=== PATIENT | male | born 1940 | race Caucasian/White ===

== ENCOUNTER 2021-01-02 05:57 | Day surgery (SDC) | payer MEDICARE, BC ==
[~2021-01-02 05:57] MED LIST: Lactated Ringers 1,000 ML IV SCH; Lidocaine 1%/Sod Bicarbonate in NS 8.4% 1 ML Syringe IDERM PRN; Sodium Chloride 0.9% 10 ML Syringe FLUSH PRN
[2021-01-02] MEDS ORDERED: Midazolam 1 MG/ML 2 ML SDV ONE (06:12)
[2021-01-02] MEDS ORDERED: Propofol 200 MG/20 ML SDV ONE ×3 (06:12→09:12)
[2021-01-02] MEDS ORDERED: Lidocaine 1% 4 ML ONE (06:12)
[2021-01-02] MEDS ORDERED: fentaNYL 100 MCG/2 ML SDV ONE (06:12)
[2021-01-02] MEDS ORDERED: ceFAZolin 1 GM Vial ONE (06:17)
[2021-01-02] MEDS ORDERED: EPINEPHrine 1 MG/ML SDV ONE (06:31)
[2021-01-02] MEDS ORDERED: Ropivacaine 0.5% 5 MG/ML 30 ML SDV ONE (06:31)
--- NOTE | 2021-01-02 06:38 | PCM.PREANE ---
Preanesthetic Assessment - Procedure Proposed Procedure: revision right total knee arthroplasty - Anesthesia/Transfusion/Family Hx Anesthesia History: Prior Anesthesia Without Reaction Family History of Anesthesia Reaction: No Transfusion History: No Prior Transfusion(s) - Review of Systems General: No Symptoms Pulmonary: No Symptoms Cardiovascular: No Symptoms Gastrointestinal: No Symptoms Neurological: No Symptoms Other: Reports: Diabetes, Thyroid Problems (growths on it), Neck Pain (arthritis) - Physical Assessment NPO Status Date: 01/01/21 NPO Status Time: 17:00 Vital Signs: 156/78 75 96% 97.9 18 Height: 5 ft 10 in Weight: 98 kg ASA Class: 3 Mental Status: Alert & Oriented x3 Airway Class: Mallampati = 1 Dentition: Reports: Partial (not in top and bottom) Thyro-Mental Finger Breadths: 3 Mouth Opening Finger Breadths: 3 ROM/Head Extension: Full Lungs: Clear to Auscultation, Normal Respiratory Effort Cardiovascular: Regular Rate, Regular Rhythm - Allergies Allergies/Adverse Reactions: Allergies Allergy/AdvReac Type Severity Reaction Status Date / Time No Known Allergies Allergy Verified 01/02/21 06:51 - Blood Blood Available: No - Anesthesia Plan Beta Amanda: Metoprolol Med Last Dose Date: 01/02/21 Med Last Dose Time: 05:00 - Acknowledgements Anesthesia Type Planned: Spinal, Regional Block (adductor canal at end) Pt an Appropriate Candidate for the Planned Anesthesia: Yes Alternatives and Risks of Anesthesia Discussed w Pt/Guardian: Yes Pt/Guardian Understands and Agrees with Anesthesia Plan: Yes PreAnesthesia Questionnaire HEENT History: Reports: Impaired Vision, Other (See Below) Other HEENT History: WEARS GLASSES, HAS HEARING AIDS Cardiovascular History: Reports: Afib, CAD, Hypertension, Other (See Below) Other Cardiovascular History: HEART VALVE ABNORMALITY Respiratory History: Reports: Sleep Apnea (cpap) Gastrointestinal History: Reports: GERD Genitourinary History: Reports: BPH, Prostate Disorder, Other (See Below) Other Genitourinary History: CKII, PROTEINURIA, BLADDER NEOPLASM FORMS EXAMINER History: Reports: None Musculoskeletal History: Reports: Osteoarthritis, Other (See Below) Other Musculoskeletal History: CALF PAIN, POPLITEAL CYST Neurological History: Reports: None Psychiatric History: Reports: None Endocrine/Metabolic History: Reports: Diabetes, Type II, Osteopenia, Other (See Below) Other Endocrine/Metabolic History: Nodules to thyroid Hematologic History: Reports: None Immunologic History: Reports: None Oncologic (Cancer) History: Reports: Bladder Dermatologic History: Reports: Other (See Below) Other Dermatologic History: BULLOUS PEMPHIGOID, SKIN LESION - Infectious Disease History Infectious Disease History: Reports: None - Past Surgical History HEENT Surgical History: Reports: Cataract Surgery Cardiovascular Surgical History: Reports: Coronary Artery Bypass Other Cardiovascular Surgeries/Procedures: 6 vessel bypass Respiratory Surgical History: Reports: None GI Surgical History: Reports: None Female Surgical History: Reports: None Male Surgical History: Reports: None Other Male Surgeries/Procedures: Bladder cancer Endocrine Surgical History: Reports: None Neurological Surgical History: Reports: None Musculoskeletal Surgical History: Reports: Knee Replacement Other Musculoskeletal Surgeries/Procedures:: RTK Oncologic Surgical History: Reports: None Dermatological Surgical History: Reports: None - SUBSTANCE USE Tobacco Use Status *Q: Former Tobacco User Tobacco Use Within Last Twelve Months: No Second Hand Smoke Exposure: No Days Per Week of Alcohol Use: 0 Recreational Drug Use History: No - HOME MEDS Home Medications: Home Meds Apixaban [Eliquis] 5 mg PO BID 10/08/14 [History] Cholecalciferol (Vitamin D3) [Vitamin D3] 2,000 unit PO BEDTIME 10/08/14 [History] Fluticasone Propionate [Flovent] 2 sprays NASBOTH BID 10/08/14 [History] Metoprolol Tartrate 25 mg PO BID 10/08/14 [History] Mometasone Furoate 100mcg [Asmanex HFA 100mcg] 1 puff INH Q48H 10/08/14 [History] Pravastatin [Pravachol] 20 mg PO BEDTIME 10/08/14 [History] Ubidecarenone [Co Q-10] 100 mg PO DAILY 10/08/14 [History] Valsartan 320 mg PO DAILY 10/08/14 [History] Zinc 50 mg PO BEDTIME 10/08/14 [History] Albuterol [Proventil HFA] 1 - 2 puff INH Q4H PRN 12/30/20 [History] Empagliflozin [Jardiance] 25 mg PO DAILY 12/30/20 [History] Finasteride [Proscar] 5 mg PO DAILY 12/30/20 [History] Furosemide [Lasix] 20 mg PO DAILY 12/30/20 [History] Hydrocodone/Acetaminophen [HYDROcodone-Acetaminophen 5-325 MG] 1 - 2 each PO Q4H PRN #40 tablet 12/30/20 [Rx] Nitroglycerin [Nitrostat] 0.4 mg SL ASDIRECTED PRN 12/30/20 [History] Tamsulosin [Flomax] 0.4 mg PO DAILY 12/30/20 [History] Tiotropium BR/Olodaterol HCL [Stiolto Respimat] 2 puff INH Q48H 12/30/20 [ History] dilTIAZem HCL [Cardizem Cd] 240 mg PO DAILY 12/30/20 [History] - CURRENT (IN HOUSE) MEDS Current Meds: Current Medications Morphine Sulfate 8 mg/Epinephrine HCl 0.3 mg/Cefuroxime Sodium 750 mg/Ketorolac Tromethamine 30 mg/Sodium Chloride 7.9 ml 0 mg .XX ASDIRECTED PRN PRN Reason: Pain Stop: 01/02/21 16:00 Lactated Ringer's (Ringers, Lactated) 1,000 mls @ 125 mls/hr IV ASDIRECTED DELL Stop: 01/02/21 23:00 Lidocaine/Sodium Bicarbonate (Lidocaine 1%/Sod Bicarbonate In Ns 8.4% 1 Ml Syringe) 0.25 ml IDERM ONETIME PRN PRN Reason: Prior to IV Start Stop: 01/02/21 18:00 Sodium Chloride (Sodium Chloride 0.9% 10 Ml Syringe) 10 ml FLUSH ASDIRECTED PRN PRN Reason: Keep Vein Open Stop: 01/02/21 18:00 Discontinued Medications Cefazolin Sodium (Cefazolin 1 Gm Vial) Confirm Administered Dose 2 gm .ROUTE .STK-MED ONE Stop: 01/02/21 06:18 Fentanyl (Fentanyl 100 Mcg/2 Ml Sdv) Confirm Administered Dose 100 mcg .ROUTE .STK-MED ONE Stop: 01/02/21 06:13 Lidocaine HCl (Xylocaine-Mpf 1%) Confirm Administered Dose 4 mls @ as directed .ROUTE .STK-MED ONE Stop: 01/02/21 06:13 Midazolam HCl (Midazolam 1 Mg/Ml 2 Ml Sdv) Confirm Administered Dose 2 mg .ROUTE .STK-MED ONE Stop: 01/02/21 06:13 Propofol (Propofol 200 Mg/20 Ml Sdv) Confirm Administered Dose 400 mg .ROUTE .STK-MED ONE Stop: 01/02/21 06:13 Tranexamic Acid (Tranexamic Acid 1,000 Mg/10 Ml Amp) Confirm Administered Dose 1,000 mg .ROUTE .STK-MED ONE Stop: 01/02/21 06:07 Vancomycin HCl (Vancomycin 1 Gm Sdv) Confirm Administered Dose 1 gm .ROUTE .STK-MED ONE Stop: 01/02/21 06:07
[2021-01-02] MEDS ORDERED: ePHEDrine 50 MG/ML SDV ONE ×2 (07:19→08:45)
[2021-01-02] MEDS ORDERED: Lactated Ringers 1,000 ML ONE ×2 (07:23→09:34)
[2021-01-02] MEDS ORDERED: HYDROmorphone 0.5 MG/0.5 ML Syringe IVPUSH PRN (07:31)
[2021-01-02] MEDS ORDERED: Ondansetron 4 MG/2 ML SDV IVPUSH PRN (07:31)
[2021-01-02] MEDS: Morphine 8 MG, EPINEPHrine 0.3 MG, Cefuroxime 750 MG, Ketorolac 30 MG, Sodium Chloride ... PRN ×10 (07:55→09:30)
[2021-01-02] MEDS: Vancomycin 1 GM SDV ONE ×2 (08:00→09:40)
[2021-01-02] MEDS ORDERED: Ondansetron 4 MG/2 ML SDV ONE (09:50)
--- NOTE | 2021-01-02 10:08 | PCM.POSTAN ---
POST ANESTHESIA ASSESSMENT - MENTAL STATUS Mental Status: Alert, Oriented - VITAL SIGNS Vital Signs: Last Vital Signs Temp 97.9 F 01/02/21 06:10 Pulse 75 01/02/21 06:10 Resp 18 01/02/21 06:10 BP 156/78 H 01/02/21 06:10 Pulse Ox 96 01/02/21 06:10 1002 122/58 66 10 97.8 94% - RESPIRATORY Respiratory Status: Respiratory Rate WNL, Airway Patent, O2 Saturation Stable, Supplemental Oxygen - CARDIOVASCULAR CV Status: Pulse Rate WNL, Blood Pressure Stable - GASTROINTESTINAL GI Status: No Symptoms - PAIN Pain Score: 0 - POST OP HYDRATION Hydration Status: Adequate & Stable
[2021-01-02] MEDS: fentaNYL 100 MCG/2 ML SDV IVPUSH PRN ×2 (10:26→10:45)
--- NOTE | 2021-01-02 10:33 | PCM.SN.2 ---
- Free Text/Narrative Note: Right selective femoral nerve block at the adductor canal for post-procedure pain control under US guidance requested by Dr. Dodd. Date: 01/02/21 Time Out:1016 Start: 1019 End: 1021 Chart reviewed. Consent signed. Questions answered. Appropriate monitors applied. Time out performed. Right mid-shaft femur identified with ultrasound, scanning medially of femur, the femoral artery in the adductor canal visualized, and the femoral nerve located laterally to the artery. The skin was prepped lateral to the ultrasound probe with chlorahexadine times two. The 20 ga 4 insulated block needle was inserted under direct ultrasound guidance into the adductor canal. 25mL of 0.5% ropivacaine with 1:200,000 epinephrine was injected circumferentially around the nerve with intermittent negative aspiration noted. Patient tolerated the procedure well. Sterile technique noted along with sterile gloves, mask, and sterile probe cover. See picture on progress note and vital signs on nurses notes. Block completed in PACU. Allan Calhoun CRNA
--- NOTE | 2021-01-02 11:51 | CR ---
Right knee: AP and lateral views of the right knee were obtained. Comparison: Prior CT right knee study of 12/23/20. Knee prosthesis is noted. Components are aligned. Patellar prosthesis is also seen. Soft tissue air is noted. No underlying bony abnormality is appreciated. Impression: 1. Satisfactory postoperative radiographic appearance of right knee prostheses. Diagnostic code #2
--- NOTE | 2021-01-02 12:43 | PCM48HPAN ---
Post Anesthesia Note - EVALUATION WITHIN 48HRS OF ANESTHETIC Vital Signs in Normal Range: Yes Patient Participated in Evaluation: Yes Respiratory Function Stable: Yes Airway Patent: Yes Cardiovascular Function Stable: Yes Hydration Status Stable: Yes Pain Control Satisfactory: Yes Nausea and Vomiting Control Satisfactory: Yes Mental Status Recovered: Yes Vital Signs: Last Vital Signs Temp 97.9 F 01/02/21 11:00 Pulse 58 L 01/02/21 11:30 Resp 17 01/02/21 11:30 BP 121/68 01/02/21 11:30 Pulse Ox 91 L 01/02/21 11:30 - COMMENTS/OBSERVATIONS Free Text/Narrative:: just back to bed after wallking in [place] with PT. pain better- ate without trouble. with
[2021-01-02 15:24] VITALS: BP 124/60; PULSE 71
--- NOTE | 2021-01-15 18:06 | PCM.OPNOTE ---
- General Post-Op/Procedure Note Date of Surgery/Procedure: 01/02/21 Operative Procedure(s): revision right total knee arthroplasty Pre Op Diagnosis: right total knee arthroplasty loosening Post-Op Diagnosis: Same Anesthesia Technique: Local, MAC, Spinal Primary Surgeon: Loco Dodd Anesthesia Provider: Allan Calhoun Forging Machine Hand: Sharon Hartmann Forging Machine Hand: Brina Collier in mLs: 5 Complications: None Condition: Good Free Text/Narrative:: 06/29 11mm 5mm tibial augments 5 distal medial 10mm distal lateral 5mm posterior lateral B cone 25 mm cone popcorn candy maker with 50mm stem
--- NOTE | 2021-01-17 07:49 | OR ---
DATE OF OPERATION: 01/02/2021 SURGEON: Loco Dodd MD OPERATION PERFORMED: Revision of right total knee arthroplasty. PREOPERATIVE DIAGNOSIS: Right total knee arthroplasty loosening. POSTOPERATIVE DIAGNOSIS: Right total knee arthroplasty loosening. ANESTHESIA: Local MAC with spinal. ANESTHESIA PROVIDER: Allan Calhoun CRNA. ASSISTANTS: Sharon Hartmann PA-C and Brina Collier LPN. ESTIMATED BLOOD LOSS: 5 mL. COMPLICATIONS: None. CONDITION: Stable. IMPLANT: 1. Misty size 5 cemented PS femur. 2. Misty size 5 cemented [place] tibial baseplate. 3. [place] size 11 mm PS X3 polyethylene. 4. [place] size 5 mm medial and lateral tibial augments. 5. Misty size 5 mm distal medial femoral augment. 6. [place] size 10 mm distal lateral augment. 7. [place] size 5 mm posterolateral augment. 8. [place] size B tibial cone. 9. Misty size 25 mm cone director of graduate admissions with 50 mm stem. DESCRIPTION OF PROCEDURE: The patient was identified in the preoperative holding area. Proper site was marked and identified by the surgeon. The patient was taken back to the operating theater, where after adequate anesthesia, the patient's right lower extremity had a nonsterile tourniquet applied and then it was sterilely prepped and draped in the usual sterile fashion. OR time-out was performed. The patient received 2 g IV Ancef. At this time, previous incision was utilized and a medial parapatellar arthrotomy was created. Deep fibers of the MCL were raised as well as any scarred adhesions near the patellar tendon. The patella button was intact with no signs of loosening. At this time, two 4.0 Schanz pins were placed extra-incisionally on the femur and 2 more were placed extra- incisionally on the tibia for the [place] robotic arrays. Checkpoints were then placed on the femur and the tibia. 40 points were then obtained off the previous implants as well as the bone around the previous implants for the [place] Pa robotic plan. Once there was an adequate plan, a flexible osteotome as well as reciprocating saw were used to dislodge the femoral component, which was found to be very easy with no bone loss whatsoever. The tibial component was completely loose and just came out without even any flexible osteotome or cutting. At this time, scar tissue was removed from around the femur and the tibia. The tibial cut was then completed taking 3 mm off the previous tibia. Excess cement from inside the canal was then removed. I did ream for a size B cone. The size 5 trial was found to be adequate. At this time, we reamed distally for a 25 mm cone director of graduate admissions and a 9 x 50 mm stem. Once this was completed, we then did the [employer] robotic plan for the femur. I took 5 mm for 5 mm augment off the distal medial side and 10 mm for the distal lateral side as well as 5 mm for the posterior lateral side. The rest of it was adequate and not much resection was done, just enough for the size 5. A box cut was then completed for the size 5 implant. Trial implants were then placed at first without augments on the tibia, but then we did 5 mm augments on both medial and lateral side of the tibia after resecting the tibia 5 mm more. At this time, 5 mm medial and lateral augments were placed on the tibia as well as 10 mm on the distal lateral femur and 5 mm on the distal medial femur and 5 mm on the posterolateral femur. The patient had adequate sikhism of tension on varus and valgus stresses with no instability. He had full range of motion. Patella was tracking centrally. At this time, cement was mixed on the back table. Pulse lavage irrigation was used to irrigate both femur and tibia and then was completely dried. The tibial and femoral constructs were constructed on the back table. At this time, once the cement was ready, the bone plug was then placed in the tibial canal and the size 5 tibial base plate with the 75 mm construct was then placed after the size B cone was placed. This was then cemented into place. The size 5 PS femur was then cemented into place and the 11 mm PS X3 polyethylene was impacted into place. The patient's knee was brought to full extension. Excess cement was removed. 1 L pulse lavage irrigation with Ancef was irrigated through the knee along with 400 mL Irrisept irrigation. Topical tranexamic acid and vancomycin powder were applied. Periarticular injection was completed. #2 barbed suture was used for closure of the medial parapatellar arthrotomy. 2-0 Vicryl and Stratafix were used subcutaneously and Prineo was used for skin closure. All of the previous robotic arrays and Schanz pins were removed. A 3-0 nylon was used for closure of the poke hole incisions for the Schanz pins. The patient had sterile soft dressing applied and sent to the PACU in stable condition. GAMA /[id number]
== END 2021-01-02 13:44 | disposition home or self-care (01) ==
LOC: JD.SDS 05:57
PROVIDERS: ATTEND Orthopaedic Surgery
DX: T84.032A Mechanical loosening of internal right knee prosthetic joint, initial encounter (principal); J44.9 Chronic obstructive pulmonary disease, unspecified; I50.9 Heart failure, unspecified; E78.5 Hyperlipidemia, unspecified; E66.3 Overweight; I48.91 Unspecified atrial fibrillation; I25.10 Atherosclerotic heart disease of native coronary artery without angina pectoris; G47.30 Sleep apnea, unspecified; E11.22 Type 2 diabetes mellitus with diabetic chronic kidney disease; I13.0 Hypertensive heart and chronic kidney disease with heart failure and stage 1 through stage 4 chronic kidney disease, or unspecified chronic kidney disease; N18.1 Chronic kidney disease, stage 1; Z79.899 Other long term (current) drug therapy; Z79.01 Long term (current) use of anticoagulants; Z87.891 Personal history of nicotine dependence; Z98.890 Other specified postprocedural states; Z68.32 Body mass index [BMI] 32.0-32.9, adult
CPT/HCPCS: 27487; 73560; 82947; 97110; 97116; 97161; C1713; C1776; J0171; J0690; J0697; J1885; J2250; J2270; J2405; J2704; J2795; J3010; J3370; J7120; 01402

== ENCOUNTER 2022-11-30 17:15 | Inpatient (IN) | payer MEDICARE, BC ==
[2022-11-30] MEDS ORDERED: Sodium Chloride 0.9% 1,000 ML IV ONE (17:27)
[2022-11-30] MEDS ORDERED: oxyCODONE 5 MG Tab PO PRN (17:32)
[2022-11-30] MEDS ORDERED: Ondansetron 4 MG/2 ML SDV IV PRN (17:32)
[2022-11-30] MEDS ORDERED: Acetaminophen 325 MG Tab PO PRN (17:32)
[2022-11-30] MEDS ORDERED: Sodium Chloride 0.9% 500 ML IV ONE (17:56)
[2022-11-30 18:14] LABS: HEMATOCRIT 40.2 % (42.0-52.0); HEMOGLOBIN 13.3 gm/dl (14.0-18.0); MEAN CORPUSCULAR HEMOGLOBIN 32.7 pg (28.0-32.0); MEAN CORPUSCULAR HGB CONC 33.1 g/dl (32.0-36.0); MEAN CORPUSCULAR VOLUME 98.8 fl (83.0-99.0); MEAN PLATELET VOLUME 9.1 fl (9.4-12.4); PLATELET COUNT,PLT 285 K/mm3 (150-400); RED BLOOD CELL COUNT 4.07 M/mm3 (4.52-5.90); WHITE BLOOD CELL COUNT,WBC 10.52 K/mm3 (3.9-11.3)
[2022-11-30 18:52] LABS: APPEARANCE,URINE CLEAR (Clear); BILIRUBIN,URINE NEGATIVE (Negative); COLOR,URINE YELLOW (Yellow); GLUCOSE,URINE 2+ (Negative); KETONES,URINE NEGATIVE (Negative); LEUKOCYTE ESTERASE,URINE NEGATIVE (Negative); NITRITE,URINE NEGATIVE (Negative); OCCULT BLOOD,URINE TRACE-INTACT (Negative); PROTEIN,URINE 1+ (Negative); UROBILINOGEN,URINE 0.2 (0.2-1.0)
[2022-11-30 18:58] LABS: RBC,URINE 0-5 /hpf (0-5); WBC,URINE 0-5 /hpf (0-5)
[2022-11-30 18:59] LABS: A/G RATIO 0.7 (1-2); ALBUMIN 3.1 g/dl (3.4-5.0); ANION GAP 15.3 (5-15); BILIRUBIN DIRECT 0.3 mg/dl (0.0-0.2); BILIRUBIN INDIRECT 0.7; CREATININE 2.6 mg/dL (0.7-1.3); EST CRCL DRUG DOSING (CG) 21.84 mL/min; POTASSIUM,K 4.3 mEq/L (3.5-5.1); PROTEIN TOTAL,TP 7.7 g/dl (6.4-8.2); TSH 0.766 uIU/mL (0.358-3.74); VITAMIN D,25-HYDROXY 77.4 ng/ml (30.0-100.0)
[2022-11-30 18:59] LABS: BACTERIA,URINE FEW /hpf (FEW); MUCUS,URINE FEW /hpf (FEW); SQUAMOUS EPITHELIAL CELLS,UR 0-5 /hpf (0-5)
[2022-11-30] MEDS ORDERED: Calcitonin (Salmon) 200 Units/ML 2 ML MDV SUBCUT ONE (19:00)
[2022-11-30 19:03] LABS: CALCIUM 13.1 mg/dL (8.5-10.1)
[2022-11-30] MEDS: Tamsulosin 0.4 MG Cap.ER PO SCH (19:05)
[2022-11-30] MEDS: Apixaban 2.5 MG Tab PO SCH (20:51)
[2022-11-30] MEDS ORDERED: Metoprolol Tartrate 25 MG Tab PO SCH (21:00)
[2022-11-30] MEDS: Sodium Chloride 0.9% 1,000 ML IV SCH (21:53)
[2022-11-30 22:37] LABS: ANION GAP 12.7 (5-15); BUN/CREATININE RATIO 20.4 (14-18); CALCIUM 12.4 mg/dL (8.5-10.1); CREATININE 2.4 mg/dL (0.7-1.3); EST CRCL DRUG DOSING (CG) 23.66 mL/min
[2022-11-30 22:50] LABS: POTASSIUM,K 4.7 mEq/L (3.5-5.1)
[2022-12-01] MEDS: Sodium Chloride 0.9% 1,000 ML IV SCH ×3 (01:02→14:42)
[2022-12-01] MEDS: Diltiazem 120 MG Cap.CD PO SCH (08:00)
[2022-12-01] MEDS: Finasteride 5 MG Tab PO SCH (08:01)
[2022-12-01] MEDS: Apixaban 2.5 MG Tab PO SCH ×2 (08:01→20:08)
[2022-12-01] MEDS: Tamsulosin 0.4 MG Cap.ER PO SCH (08:01)
[2022-12-01] MEDS ORDERED: Docusate Sodium 100 MG Cap PO PRN (08:21)
[2022-12-01] MEDS ORDERED: Calcitonin (Salmon) 200 Units/ML 2 ML MDV SUBCUT ONE ×3 (09:00→21:00)
[2022-12-01 12:34] LABS: ANION GAP 15.3 (5-15); BUN/CREATININE RATIO 18.6 (14-18); CALCIUM 12.1 mg/dL (8.5-10.1); CREATININE 2.2 mg/dL (0.7-1.3); EST CRCL DRUG DOSING (CG) 25.81 mL/min; MAGNESIUM 2.2 mg/dL (1.8-2.4); PHOSPHORUS 3.7 mg/dL (2.6-4.7); POTASSIUM,K 4.3 mEq/L (3.5-5.1)
[2022-12-01] MEDS ORDERED: Tiotropium BR/Olodaterol HCL 4 GM Inhalation Spray 2.5mcg/1 dose; 10 doses INH SCH (18:00)
[2022-12-02] MEDS: Sodium Chloride 0.9% 1,000 ML IV SCH ×2 (00:35→20:10)
[2022-12-02] MEDS: Apixaban 2.5 MG Tab PO SCH ×2 (08:00→20:06)
[2022-12-02] MEDS: Tamsulosin 0.4 MG Cap.ER PO SCH (08:00)
[2022-12-02] MEDS: Finasteride 5 MG Tab PO SCH (08:00)
[2022-12-02] MEDS: Diltiazem 120 MG Cap.CD PO SCH (08:00)
[2022-12-02] MEDS: Tiotropium BR/Olodaterol HCL 4 GM Inhalation Spray 2.5mcg/1 dose; 10 doses INH SCH (09:07)
[2022-12-02 09:13] LABS: ANION GAP 12.9 (5-15); BUN/CREATININE RATIO 17.1 (14-18); CALCIUM 11.3 mg/dL (8.5-10.1); CREATININE 2.1 mg/dL (0.7-1.3); EST CRCL DRUG DOSING (CG) 27.04 mL/min; POTASSIUM,K 3.9 mEq/L (3.5-5.1)
[2022-12-02] MEDS ORDERED: Calcitonin (Salmon) 200 Units/ML 2 ML MDV SUBCUT ONE ×2 (11:36→23:00)
[2022-12-02] MEDS: Albumin 25% 12.5 GM in Premix Bag 1 BAG IV SCH ×2 (11:58→13:00)
[2022-12-02] MEDS ORDERED: Albumin 25% 12.5 GM in Premix Bag 1 BAG IV SCH (15:00)
[2022-12-03 05:40] LABS: ANION GAP 15.4 (5-15); BUN/CREATININE RATIO 16.5 (14-18); CALCIUM 11.5 mg/dL (8.5-10.1); EST CRCL DRUG DOSING (CG) 28.39 mL/min; POTASSIUM,K 4.4 mEq/L (3.5-5.1)
[2022-12-03] MEDS: Apixaban 2.5 MG Tab PO SCH ×2 (09:03→20:50)
[2022-12-03] MEDS: Tamsulosin 0.4 MG Cap.ER PO SCH (09:03)
[2022-12-03] MEDS: Finasteride 5 MG Tab PO SCH (09:04)
[2022-12-03] MEDS: Diltiazem 120 MG Cap.CD PO SCH (09:04)
[2022-12-03] MEDS: Sodium Chloride 0.9% 1,000 ML IV SCH (09:05)
[2022-12-03] MEDS ORDERED: Labetalol 100 MG Tab PO SCH (10:00)
[2022-12-03 16:39] LABS: A/G RATIO 0.6 (1-2); ANION GAP 14.2 (5-15); BILIRUBIN TOTAL 0.9 mg/dL (0.2-1.0); BUN/CREATININE RATIO 17.8 (14-18); CALCIUM 11.1 mg/dL (8.5-10.1); CREATININE 1.8 mg/dL (0.7-1.3); EST CRCL DRUG DOSING (CG) 31.54 mL/min; POTASSIUM,K 4.2 mEq/L (3.5-5.1); PROTEIN TOTAL,TP 7.7 g/dl (6.4-8.2)
[2022-12-03] MEDS: Labetalol 100 MG Tab PO SCH (20:50)
[2022-12-03] MEDS ORDERED: Calcitonin (Salmon) 200 Units/ML 2 ML MDV SUBCUT ONE (21:00)
[2022-12-04 05:50] LABS: BASOPHILS PERCENT AUTO 0.4 % (0.0-1.0); EOSINOPHILS ABSOLUTE AUTO 0.3 K/mm3 (0.0-0.4); EOSINOPHILS PERCENT AUTO 2.6 % (0.0-6.0); IMMATURE GRAN ABSOLUTE AUTO 0.04 K/mm3 (0.00-0.05); IMMATURE GRAN PERCENT AUTO 0.4 % (0.0-0.4); LYMPHOCYTES PERCENT AUTO 9.3 % (24.0-44.0); MEAN CORPUSCULAR HEMOGLOBIN 32.7 pg (28.0-32.0); MEAN CORPUSCULAR HGB CONC 33.3 g/dl (32.0-36.0); MEAN CORPUSCULAR VOLUME 98.1 fl (83.0-99.0); MEAN PLATELET VOLUME 10.1 fl (9.4-12.4); MONOCYTES ABSOLUTE AUTO 0.8 K/mm3 (0.0-0.8); MONOCYTES PERCENT AUTO 7.9 % (0.0-8.0); NEUTROPHILS ABSOLUTE AUTO 8.5 K/mm3 (1.8-7.7); NEUTROPHILS PERCENT AUTO 79.4 % (41.0-71.0); PLATELET COUNT,PLT 247 K/mm3 (150-400); RED BLOOD CELL COUNT 3.67 M/mm3 (4.52-5.90); WHITE BLOOD CELL COUNT,WBC 10.68 K/mm3 (3.9-11.3)
[2022-12-04 05:55] LABS: A/G RATIO 0.6 (1-2); ALBUMIN 2.8 g/dl (3.4-5.0); ANION GAP 15.2 (5-15); BILIRUBIN TOTAL 1.1 mg/dL (0.2-1.0); BUN/CREATININE RATIO 16.8 (14-18); CALCIUM 10.6 mg/dL (8.5-10.1); CREATININE 1.9 mg/dL (0.7-1.3); EST CRCL DRUG DOSING (CG) 29.88 mL/min; POTASSIUM,K 4.2 mEq/L (3.5-5.1); PROTEIN TOTAL,TP 7.2 g/dl (6.4-8.2)
[2022-12-04] MEDS: Tiotropium BR/Olodaterol HCL 4 GM Inhalation Spray 2.5mcg/1 dose; 10 doses INH SCH (08:07)
[2022-12-04] MEDS: Apixaban 2.5 MG Tab PO SCH (08:38)
[2022-12-04] MEDS: Tamsulosin 0.4 MG Cap.ER PO SCH (08:38)
[2022-12-04] MEDS: Finasteride 5 MG Tab PO SCH (08:38)
[2022-12-04] MEDS: Labetalol 100 MG Tab PO SCH (08:38)
[2022-12-04] MEDS ORDERED: Diltiazem 120 MG Cap.CD PO SCH (09:00)
[2022-12-04 13:55] VITALS: BP 98/66
[2022-12-04 13:56] VITALS: PULSE 66
== END 2022-12-04 14:40 | disposition home or self-care (01) | DRG 640 ==
LOC: JD.ICU 17:15
PROVIDERS: ADMIT Hospitalist; ATTEND Internal Medicine
DX: E83.52 Hypercalcemia (principal); A41.9 Sepsis, unspecified organism; E87.20 Acidosis, unspecified; J44.1 Chronic obstructive pulmonary disease with (acute) exacerbation; N17.9 Acute kidney failure, unspecified; I13.0 Hypertensive heart and chronic kidney disease with heart failure and stage 1 through stage 4 chronic kidney disease, or unspecified chronic kidney disease; I25.810 Atherosclerosis of coronary artery bypass graft(s) without angina pectoris; I48.20 Chronic atrial fibrillation, unspecified; N39.0 Urinary tract infection, site not specified; N18.32 Chronic kidney disease, stage 3b; E11.22 Type 2 diabetes mellitus with diabetic chronic kidney disease; I95.9 Hypotension, unspecified; N40.0 Benign prostatic hyperplasia without lower urinary tract symptoms; I50.9 Heart failure, unspecified; E04.1 Nontoxic single thyroid nodule; R63.0 Anorexia; E04.2 Nontoxic multinodular goiter; K57.90 Diverticulosis of intestine, part unspecified, without perforation or abscess without bleeding; M19.011 Primary osteoarthritis, right shoulder; K80.20 Calculus of gallbladder without cholecystitis without obstruction; Z96.659 Presence of unspecified artificial knee joint; Z20.822 Contact with and (suspected) exposure to COVID-19; Z79.01 Long term (current) use of anticoagulants; Z85.51 Personal history of malignant neoplasm of bladder; Z79.899 Other long term (current) drug therapy; Z95.1 Presence of aortocoronary bypass graft; Z98.49 Cataract extraction status, unspecified eye; Z87.891 Personal history of nicotine dependence; Z98.890 Other specified postprocedural states
CPT/HCPCS: 36415; 70491; 70491-26; 71260; 71260-26; 74177; 74177-26; 76536; 76536-26; 80048; 80053; 80076; 81001; 82044; 82232; 82306; 82330; 82397; 82784; 82947; 83516; 83605; 83735; 83883; 83970; 84100; 84155; 84156; 84165; 84166; 84443; 85025; 85027; 85379; 90653; 93005; 93010; 94640; 94660; 97116-GP; 97161-GP; 97162-GP; 99215; 99222; 99231; A9270-GY; G0008; J0630; J7030; P9047; Q9967; U0002

== ENCOUNTER 2022-12-19 07:48 | Inpatient (IN) | payer MEDICARE, BC ==
[2022-12-19] MEDS ORDERED: Albuterol/Ipratropium 3.0-0.5 MG/3 ML Neb Soln NEB ONE (08:26)
[2022-12-19 08:34] LABS: BASOPHILS ABSOLUTE AUTO 0.1 K/mm3 (0.0-0.2); BASOPHILS PERCENT AUTO 0.6 % (0.0-1.0); EOSINOPHILS ABSOLUTE AUTO 0.5 K/mm3 (0.0-0.4); EOSINOPHILS PERCENT AUTO 4.2 % (0.0-6.0); HEMATOCRIT 34.3 % (42.0-52.0); HEMOGLOBIN 11.4 gm/dl (14.0-18.0); IMMATURE GRAN ABSOLUTE AUTO 0.07 K/mm3 (0.00-0.05); IMMATURE GRAN PERCENT AUTO 0.6 % (0.0-0.4); LYMPHOCYTES ABSOLUTE AUTO 1.2 K/mm3 (1.0-4.8); MEAN CORPUSCULAR HEMOGLOBIN 33.3 pg (28.0-32.0); MEAN CORPUSCULAR HGB CONC 33.2 g/dl (32.0-36.0); MEAN CORPUSCULAR VOLUME 100.3 fl (83.0-99.0); MEAN PLATELET VOLUME 9.9 fl (9.4-12.4); NEUTROPHILS ABSOLUTE AUTO 8.1 K/mm3 (1.8-7.7); NEUTROPHILS PERCENT AUTO 74.6 % (41.0-71.0); PLATELET COUNT,PLT 323 K/mm3 (150-400); RED BLOOD CELL COUNT 3.42 M/mm3 (4.52-5.90); WHITE BLOOD CELL COUNT,WBC 10.83 K/mm3 (3.9-11.3)
[2022-12-19 08:46] LABS: A/G RATIO 0.7 (1-2); ANION GAP 15.1 (5-15); BUN/CREATININE RATIO 15.7 (14-18); CREATININE 2.1 mg/dL (0.7-1.3); EST CRCL DRUG DOSING (CG) 27.04 mL/min; POTASSIUM,K 4.1 mEq/L (3.5-5.1); PROTEIN TOTAL,TP 7.5 g/dl (6.4-8.2)
[2022-12-19] MEDS ORDERED: Albuterol 0.083% 2.5 MG/3 ML Neb Soln NEB ONE (09:40)
[2022-12-19] MEDS ORDERED: Furosemide 20 MG/2 ML VIAL IVPUSH ONE (10:11)
[2022-12-19] MEDS ORDERED: Furosemide 40 MG/4 ML VIAL IVPUSH ONE (10:15)
[2022-12-19] MEDS ORDERED: Docusate Sodium 100 MG Cap PO PRN (12:49)
[2022-12-19] MEDS ORDERED: Albuterol/Ipratropium 3.0-0.5 MG/3 ML Neb Soln NEB PRN (12:49)
[2022-12-19] MEDS ORDERED: Ondansetron 4 MG Tab.DIS PO PRN (12:49)
[2022-12-19] MEDS ORDERED: Acetaminophen 325 MG Tab PO PRN (12:49)
[2022-12-19] MEDS ORDERED: Sodium Chloride 0.9% 10 ML Syringe FLUSH PRN (12:49)
[2022-12-19] MEDS ORDERED: Ondansetron 4 MG/2 ML SDV IV PRN (12:49)
[2022-12-19] MEDS ORDERED: Heparin Sodium 5,000 Units/ML Vial SUBCUT SCH (13:00)
[2022-12-19] MEDS ORDERED: Nitroglycerin 0.4 MG Tab.SL SL PRN (13:03)
[2022-12-19] MEDS: Insulin Lispro 100 Unit/ML 3 ML KwikPen SUBCUT SCH ×2 (17:19→21:04)
[2022-12-19] MEDS ORDERED: Furosemide 40 MG/4 ML VIAL IVPUSH SCH (21:00)
[2022-12-19] MEDS: Pravastatin 20 MG Tab PO SCH (21:05)
[2022-12-19] MEDS: Labetalol 100 MG Tab PO SCH (21:05)
[2022-12-19] MEDS: Apixaban 5 MG Tab PO SCH (21:05)
[2022-12-20 05:09] LABS: ANION GAP 12.7 (5-15); BUN/CREATININE RATIO 16.4 (14-18); CALCIUM 10.6 mg/dL (8.5-10.1); CREATININE 2.2 mg/dL (0.7-1.3); EST CRCL DRUG DOSING (CG) 25.81 mL/min; POTASSIUM,K 3.7 mEq/L (3.5-5.1)
[2022-12-20 05:31] LABS: BASOPHILS ABSOLUTE AUTO 0.1 K/mm3 (0.0-0.2); BASOPHILS PERCENT AUTO 0.8 % (0.0-1.0); EOSINOPHILS ABSOLUTE AUTO 0.4 K/mm3 (0.0-0.4); EOSINOPHILS PERCENT AUTO 4.7 % (0.0-6.0); HEMATOCRIT 31.8 % (42.0-52.0); HEMOGLOBIN 10.7 gm/dl (14.0-18.0); IMMATURE GRAN ABSOLUTE AUTO 0.07 K/mm3 (0.00-0.05); IMMATURE GRAN PERCENT AUTO 0.8 % (0.0-0.4); LYMPHOCYTES ABSOLUTE AUTO 1.2 K/mm3 (1.0-4.8); LYMPHOCYTES PERCENT AUTO 13.4 % (24.0-44.0); MEAN CORPUSCULAR HEMOGLOBIN 32.3 pg (28.0-32.0); MEAN CORPUSCULAR HGB CONC 33.6 g/dl (32.0-36.0); MEAN CORPUSCULAR VOLUME 96.1 fl (83.0-99.0); MEAN PLATELET VOLUME 9.9 fl (9.4-12.4); MONOCYTES ABSOLUTE AUTO 0.8 K/mm3 (0.0-0.8); MONOCYTES PERCENT AUTO 8.9 % (0.0-8.0); NEUTROPHILS ABSOLUTE AUTO 6.5 K/mm3 (1.8-7.7); NEUTROPHILS PERCENT AUTO 71.4 % (41.0-71.0); PLATELET COUNT,PLT 287 K/mm3 (150-400); RED BLOOD CELL COUNT 3.31 M/mm3 (4.52-5.90); WHITE BLOOD CELL COUNT,WBC 9.12 K/mm3 (3.9-11.3)
[2022-12-20] MEDS: Furosemide 40 MG/4 ML VIAL IVPUSH SCH ×2 (06:18→13:09)
[2022-12-20] MEDS: Insulin Lispro 100 Unit/ML 3 ML KwikPen SUBCUT SCH ×4 (07:46→21:41)
[2022-12-20] MEDS: Diltiazem 120 MG Cap.CD PO SCH (08:55)
[2022-12-20] MEDS: Tamsulosin 0.4 MG Cap.ER PO SCH (08:55)
[2022-12-20] MEDS: Apixaban 5 MG Tab PO SCH (08:56)
[2022-12-20] MEDS: Allopurinol 300 MG Tab PO SCH (08:57)
[2022-12-20] MEDS: Finasteride 5 MG Tab PO SCH (08:57)
[2022-12-20] MEDS ORDERED: Non-Formulary Medication 1 Each (Ubidecarenone 100 MG Capsule) PO SCH (09:00)
[2022-12-20] MEDS: Labetalol 100 MG Tab PO SCH ×2 (09:01→20:15)
[2022-12-20] MEDS ORDERED: Tiotropium BR/Olodaterol HCL 4 GM Inhalation Spray 2.5mcg/1 dose; 10 doses INH SCH (10:00)
[2022-12-20] MEDS ORDERED: Carboxymethylcellulose Sodium 1% Ophth Gel 15 ML Bottle EYEBOTH PRN (12:55)
[2022-12-20] MEDS: Pravastatin 20 MG Tab PO SCH (20:15)
[2022-12-20] MEDS: Apixaban 2.5 MG Tab PO SCH (20:15)
[2022-12-20] MEDS ORDERED: FLUTICASONE PROPIONATE 50 MCG SCH (21:00)
[2022-12-21 05:47] LABS: ANION GAP 13.4 (5-15); BUN/CREATININE RATIO 18.4 (14-18); CALCIUM 10.7 mg/dL (8.5-10.1); CREATININE 2.5 mg/dL (0.7-1.3); EST CRCL DRUG DOSING (CG) 22.71 mL/min; MAGNESIUM 2.1 mg/dL (1.8-2.4); POTASSIUM,K 3.4 mEq/L (3.5-5.1)
[2022-12-21] MEDS ORDERED: Potassium Chloride 20 MEQ Tab.ER PO ONE (07:17)
[2022-12-21] MEDS: Furosemide 40 MG/4 ML VIAL IVPUSH SCH (07:32)
[2022-12-21] MEDS: Insulin Lispro 100 Unit/ML 3 ML KwikPen SUBCUT SCH (08:36)
[2022-12-21] MEDS: Apixaban 2.5 MG Tab PO SCH (08:47)
[2022-12-21] MEDS: Allopurinol 300 MG Tab PO SCH (08:47)
[2022-12-21] MEDS: Diltiazem 120 MG Cap.CD PO SCH (08:48)
[2022-12-21] MEDS: Tamsulosin 0.4 MG Cap.ER PO SCH (08:48)
[2022-12-21] MEDS: Labetalol 100 MG Tab PO SCH (08:48)
[2022-12-21] MEDS: Finasteride 5 MG Tab PO SCH (08:48)
[2022-12-21] MEDS ORDERED: Furosemide 40 MG Tab PO SCH (09:00)
[2022-12-21 12:00] VITALS: BP 123/67
[2022-12-21 12:02] VITALS: PULSE 72
== END 2022-12-21 12:13 | disposition home or self-care (01) | DRG 291 ==
LOC: JD.ED 07:48 → JD.MS 13:20
PROVIDERS: ADMIT Hospitalist; ATTEND Hospitalist
PROC: 5A09457 Assistance with Respiratory Ventilation, 24-96 Consecutive Hours, Continuous Positive Airway Pressure (ICD-10-PCS; principal; 2022-12-19)
DX: I13.0 Hypertensive heart and chronic kidney disease with heart failure and stage 1 through stage 4 chronic kidney disease, or unspecified chronic kidney disease (principal); I50.33 Acute on chronic diastolic (congestive) heart failure; J96.01 Acute respiratory failure with hypoxia; N18.4 Chronic kidney disease, stage 4 (severe); I25.10 Atherosclerotic heart disease of native coronary artery without angina pectoris; E11.22 Type 2 diabetes mellitus with diabetic chronic kidney disease; E83.52 Hypercalcemia; I48.91 Unspecified atrial fibrillation; Z96.659 Presence of unspecified artificial knee joint; D53.9 Nutritional anemia, unspecified; J44.9 Chronic obstructive pulmonary disease, unspecified; M85.80 Other specified disorders of bone density and structure, unspecified site; G47.33 Obstructive sleep apnea (adult) (pediatric); K21.9 Gastro-esophageal reflux disease without esophagitis; M19.90 Unspecified osteoarthritis, unspecified site; Z85.51 Personal history of malignant neoplasm of bladder; Z79.01 Long term (current) use of anticoagulants; Z79.51 Long term (current) use of inhaled steroids; Z98.49 Cataract extraction status, unspecified eye; Z95.5 Presence of coronary angioplasty implant and graft
CPT/HCPCS: 36415; 71045; 71045-26; 80048; 80053; 82947; 83735; 83880; 84155; 84156; 84165; 84166; 84484; 85025; 93005; 93010; 93306; 94640; 94660; 94762; 96374; 99285; 99285-25; A9270-GY; J1815; J1940; J7620-GY

== ENCOUNTER 2023-11-12 09:19 | Emergency (ER) | payer MEDICARE, BC ==
[2023-11-12] MEDS: Lidocaine 1% 10 ML MDV INJECT ONE (12:51)
[2023-11-12] MEDS: Triamcinolone Acetonide 40 MG/ML 1 ML SDV INJECT ONE (12:51)
[2023-11-12 19:31] VITALS: BP 144/80; PULSE 97
== END 2023-11-12 12:39 | disposition home or self-care (01) ==
LOC: JD.ED 09:19
DX: M54.2 Cervicalgia (principal); I10 Essential (primary) hypertension; I48.91 Unspecified atrial fibrillation; J44.9 Chronic obstructive pulmonary disease, unspecified; K21.9 Gastro-esophageal reflux disease without esophagitis; E11.9 Type 2 diabetes mellitus without complications; Z95.5 Presence of coronary angioplasty implant and graft; Z79.01 Long term (current) use of anticoagulants; Z79.899 Other long term (current) drug therapy; W01.0XXA Fall on same level from slipping, tripping and stumbling without subsequent striking against object, initial encounter
CPT/HCPCS: 20552; 70450; 72125; 96372; 99283; J3301; J3490

== ENCOUNTER 2024-02-24 08:55 | Emergency (ER) | payer MEDICARE, BC ==
[2024-02-24] MEDS ORDERED: Sodium Chloride 0.9% 10 ML Syringe FLUSH PRN (09:19)
[2024-02-24 09:34] LABS: BASOPHILS PERCENT AUTO 0.6 % (0.0-1.0); EOSINOPHILS ABSOLUTE AUTO 0.3 K/mm3 (0.0-0.4); EOSINOPHILS PERCENT AUTO 3.7 % (0.0-6.0); HEMATOCRIT 39.7 % (42.0-52.0); HEMOGLOBIN 12.6 gm/dl (14.0-18.0); IMMATURE GRAN ABSOLUTE AUTO 0.02 K/mm3 (0.00-0.05); IMMATURE GRAN PERCENT AUTO 0.3 % (0.0-0.4); LYMPHOCYTES ABSOLUTE AUTO 0.9 K/mm3 (1.0-4.8); LYMPHOCYTES PERCENT AUTO 12.9 % (24.0-44.0); MEAN CORPUSCULAR HEMOGLOBIN 31.9 pg (28.0-32.0); MEAN CORPUSCULAR HGB CONC 31.7 g/dl (32.0-36.0); MEAN CORPUSCULAR VOLUME 100.5 fl (83.0-99.0); MEAN PLATELET VOLUME 10.6 fl (9.4-12.4); MONOCYTES ABSOLUTE AUTO 0.7 K/mm3 (0.0-0.8); MONOCYTES PERCENT AUTO 9.9 % (0.0-8.0); NEUTROPHILS ABSOLUTE AUTO 5.1 K/mm3 (1.8-7.7); NEUTROPHILS PERCENT AUTO 72.6 % (41.0-71.0); PLATELET COUNT,PLT 250 K/mm3 (150-400); RED BLOOD CELL COUNT 3.95 M/mm3 (4.52-5.90); WHITE BLOOD CELL COUNT,WBC 6.96 K/mm3 (3.9-11.3)
[2024-02-24 09:45] LABS: A/G RATIO 0.8 (1-2); ALBUMIN 3.2 g/dl (3.4-5.0); BILIRUBIN TOTAL 1.5 mg/dL (0.2-1.0); BUN/CREATININE RATIO 21.7 (14-18); CALCIUM 9.7 mg/dL (8.5-10.1); CREATININE 2.3 mg/dL (0.7-1.3); EST CRCL DRUG DOSING (CG) 24.25 mL/min; MAGNESIUM 2.3 mg/dL (1.8-2.4); PROTEIN TOTAL,TP 7.4 g/dl (6.4-8.2)
[2024-02-24 09:51] LABS: APPEARANCE,URINE CLEAR (Clear); BILIRUBIN,URINE NEGATIVE (Negative); COLOR,URINE YELLOW (Yellow); GLUCOSE,URINE 2+ (Negative); KETONES,URINE NEGATIVE (Negative); LEUKOCYTE ESTERASE,URINE NEGATIVE (Negative); NITRITE,URINE NEGATIVE (Negative); OCCULT BLOOD,URINE NEGATIVE (Negative); PROTEIN,URINE 1+ (Negative)
[2024-02-24] MEDS: Furosemide 20 MG/2 ML VIAL IVPUSH ONE ×2 (10:22→16:15)
[2024-02-24 10:26] LABS: RBC,URINE 0-5 /hpf (0-5); WBC,URINE 0-5 /hpf (0-5)
[2024-02-24 10:27] LABS: BACTERIA,URINE FEW /hpf (FEW); EPITHELIAL CELLS,URINE 0-5 /hpf (0-5); MUCUS,URINE NOT SEEN /hpf (FEW)
[2024-02-24] MEDS ORDERED: Furosemide 40 MG/4 ML VIAL IVPUSH ONE (15:13)
[2024-02-24 18:04] VITALS: BP 108/88; PULSE 92
== END 2024-02-24 17:50 | disposition home or self-care (01) ==
LOC: JD.ED 08:55
DX: I11.0 Hypertensive heart disease with heart failure (principal); I50.20 Unspecified systolic (congestive) heart failure; I48.91 Unspecified atrial fibrillation; J44.9 Chronic obstructive pulmonary disease, unspecified; E11.9 Type 2 diabetes mellitus without complications; Z95.5 Presence of coronary angioplasty implant and graft; Z96.659 Presence of unspecified artificial knee joint; Z87.891 Personal history of nicotine dependence; Z79.01 Long term (current) use of anticoagulants; Z79.899 Other long term (current) drug therapy
CPT/HCPCS: 36415; 71045; 71045-26; 80053; 81001; 83735; 83880; 84484; 85025; 93005; 96374; 96376; 99285-25; J1940

== ENCOUNTER 2024-03-01 17:02 | Inpatient (IN) | payer MEDICARE, BC ==
[2024-03-01] MEDS ORDERED: Sodium Chloride 0.9% 10 ML Syringe FLUSH PRN (17:18)
[2024-03-01 17:49] LABS: BASOPHILS ABSOLUTE AUTO 0.1 K/mm3 (0.0-0.2); BASOPHILS PERCENT AUTO 0.6 % (0.0-1.0); EOSINOPHILS ABSOLUTE AUTO 0.4 K/mm3 (0.0-0.4); EOSINOPHILS PERCENT AUTO 4.9 % (0.0-6.0); HEMATOCRIT 37.8 % (42.0-52.0); HEMOGLOBIN 12.3 gm/dl (14.0-18.0); IMMATURE GRAN ABSOLUTE AUTO 0.03 K/mm3 (0.00-0.05); IMMATURE GRAN PERCENT AUTO 0.4 % (0.0-0.4); LYMPHOCYTES PERCENT AUTO 13.1 % (24.0-44.0); MEAN CORPUSCULAR HGB CONC 32.5 g/dl (32.0-36.0); MEAN CORPUSCULAR VOLUME 98.4 fl (83.0-99.0); MONOCYTES ABSOLUTE AUTO 0.8 K/mm3 (0.0-0.8); MONOCYTES PERCENT AUTO 9.7 % (0.0-8.0); NEUTROPHILS ABSOLUTE AUTO 5.5 K/mm3 (1.8-7.7); NEUTROPHILS PERCENT AUTO 71.3 % (41.0-71.0); PLATELET COUNT,PLT 256 K/mm3 (150-400); RED BLOOD CELL COUNT 3.84 M/mm3 (4.52-5.90)
[2024-03-01 18:15] LABS: LACTIC ACID 1.8 mmol/L (0.4-2.0)
[2024-03-01 18:24] LABS: A/G RATIO 0.8 (1-2); ALBUMIN 3.2 g/dl (3.4-5.0); ANION GAP 17.1 (5-15); BILIRUBIN TOTAL 1.5 mg/dL (0.2-1.0); BUN/CREATININE RATIO 18.8 (14-18); C-REACTIVE PROTEIN 0.21 mg/dL (<0.30); CALCIUM 9.5 mg/dL (8.5-10.1); CREATININE 2.4 mg/dL (0.7-1.3); EST CRCL DRUG DOSING (CG) 23.23 mL/min; POTASSIUM,K 4.1 mEq/L (3.5-5.1); PROTEIN TOTAL,TP 7.3 g/dl (6.4-8.2)
[2024-03-01] MEDS ORDERED: Furosemide 40 MG/4 ML VIAL IVPUSH ONE (18:59)
[2024-03-01 19:09] LABS: APPEARANCE,URINE CLEAR (Clear); BILIRUBIN,URINE NEGATIVE (Negative); COLOR,URINE YELLOW (Yellow); GLUCOSE,URINE 1+ (Negative); KETONES,URINE NEGATIVE (Negative); LEUKOCYTE ESTERASE,URINE NEGATIVE (Negative); NITRITE,URINE NEGATIVE (Negative); OCCULT BLOOD,URINE NEGATIVE (Negative); PROTEIN,URINE NEGATIVE (Negative); UROBILINOGEN,URINE 0.2 (0.2-1.0)
[2024-03-01] MEDS: Furosemide 20 MG/2 ML VIAL IVPUSH ONE (19:19)
[2024-03-02 05:25] LABS: BASOPHILS PERCENT AUTO 0.5 % (0.0-1.0); EOSINOPHILS ABSOLUTE AUTO 0.3 K/mm3 (0.0-0.4); EOSINOPHILS PERCENT AUTO 3.9 % (0.0-6.0); HEMOGLOBIN 12.1 gm/dl (14.0-18.0); IMMATURE GRAN ABSOLUTE AUTO 0.03 K/mm3 (0.00-0.05); IMMATURE GRAN PERCENT AUTO 0.4 % (0.0-0.4); LYMPHOCYTES PERCENT AUTO 13.2 % (24.0-44.0); MEAN CORPUSCULAR HEMOGLOBIN 31.8 pg (28.0-32.0); MEAN CORPUSCULAR HGB CONC 32.7 g/dl (32.0-36.0); MEAN CORPUSCULAR VOLUME 97.1 fl (83.0-99.0); MEAN PLATELET VOLUME 10.2 fl (9.4-12.4); MONOCYTES ABSOLUTE AUTO 0.9 K/mm3 (0.0-0.8); MONOCYTES PERCENT AUTO 11.7 % (0.0-8.0); NEUTROPHILS ABSOLUTE AUTO 5.2 K/mm3 (1.8-7.7); NEUTROPHILS PERCENT AUTO 70.3 % (41.0-71.0); PLATELET COUNT,PLT 240 K/mm3 (150-400); RED BLOOD CELL COUNT 3.81 M/mm3 (4.52-5.90); WHITE BLOOD CELL COUNT,WBC 7.45 K/mm3 (3.9-11.3)
[2024-03-02 05:43] LABS: A/G RATIO 0.8 (1-2); ALBUMIN 2.9 g/dl (3.4-5.0); ANION GAP 18.1 (5-15); BILIRUBIN TOTAL 1.8 mg/dL (0.2-1.0); BUN/CREATININE RATIO 20.9 (14-18); CALCIUM 9.4 mg/dL (8.5-10.1); CREATININE 2.3 mg/dL (0.7-1.3); EST CRCL DRUG DOSING (CG) 24.25 mL/min; MAGNESIUM 2.3 mg/dL (1.8-2.4); PHOSPHORUS 3.4 mg/dL (2.6-4.7); POTASSIUM,K 4.1 mEq/L (3.5-5.1); PROTEIN TOTAL,TP 6.7 g/dl (6.4-8.2)
[2024-03-02] MEDS: Tiotropium BR/Olodaterol HCL 4 GM Inhalation Spray 2.5mcg/1 dose; 10 doses INH SCH (08:26)
[2024-03-02] MEDS ORDERED: Acetaminophen 325 MG Tab PO PRN (09:11)
[2024-03-02] MEDS ORDERED: Ondansetron 4 MG Tab.DIS PO PRN (09:11)
[2024-03-02] MEDS ORDERED: Polyethylene Glycol 3350 Powder 17 GM Packet PO PRN (09:11)
[2024-03-02] MEDS ORDERED: Docusate Sodium 100 MG Cap PO PRN (09:11)
[2024-03-02] MEDS ORDERED: 50% Dextrose in Water 50 ML Syringe IVPUSH PRN (09:17)
[2024-03-02] MEDS: Finasteride 5 MG Tab PO SCH (10:09)
[2024-03-02] MEDS: Tamsulosin 0.4 MG Cap.ER PO SCH (10:09)
[2024-03-02] MEDS: Apixaban 2.5 MG Tab PO SCH (10:09)
[2024-03-02] MEDS: Allopurinol 100 MG Tab PO SCH (10:13)
[2024-03-02] MEDS: Insulin Lispro 100 Unit/ML 3 ML KwikPen SUBCUT SCH (10:48)
[2024-03-02] MEDS: Furosemide 20 MG/2 ML VIAL IVPUSH ONE (12:04)
[2024-03-02] MEDS: Sodium Bicarbonate 650 MG Tab PO SCH (17:20)
[2024-03-02] MEDS: Pravastatin 20 MG Tab PO SCH (17:21)
[2024-03-02] MEDS ORDERED: Tiotropium Bromide 4 GM Inhalation Spray (2.5mcg/1 dose; 10 doses) INH SCH (21:00)
[2024-03-03 05:30] LABS: BASOPHILS PERCENT AUTO 0.5 % (0.0-1.0); EOSINOPHILS ABSOLUTE AUTO 0.3 K/mm3 (0.0-0.4); EOSINOPHILS PERCENT AUTO 3.2 % (0.0-6.0); HEMATOCRIT 38.5 % (42.0-52.0); HEMOGLOBIN 12.7 gm/dl (14.0-18.0); IMMATURE GRAN ABSOLUTE AUTO 0.03 K/mm3 (0.00-0.05); IMMATURE GRAN PERCENT AUTO 0.4 % (0.0-0.4); LYMPHOCYTES PERCENT AUTO 12.3 % (24.0-44.0); MEAN CORPUSCULAR HEMOGLOBIN 32.2 pg (28.0-32.0); MEAN CORPUSCULAR VOLUME 97.5 fl (83.0-99.0); MEAN PLATELET VOLUME 10.4 fl (9.4-12.4); MONOCYTES ABSOLUTE AUTO 0.8 K/mm3 (0.0-0.8); NEUTROPHILS ABSOLUTE AUTO 5.8 K/mm3 (1.8-7.7); NEUTROPHILS PERCENT AUTO 73.6 % (41.0-71.0); PLATELET COUNT,PLT 245 K/mm3 (150-400); RED BLOOD CELL COUNT 3.95 M/mm3 (4.52-5.90); WHITE BLOOD CELL COUNT,WBC 7.82 K/mm3 (3.9-11.3)
[2024-03-03 05:58] LABS: ANION GAP 14.4 (5-15); BUN/CREATININE RATIO 20.9 (14-18); CALCIUM 9.8 mg/dL (8.5-10.1); CREATININE 2.3 mg/dL (0.7-1.3); EST CRCL DRUG DOSING (CG) 24.25 mL/min; MAGNESIUM 2.6 mg/dL (1.8-2.4); POTASSIUM,K 4.4 mEq/L (3.5-5.1)
[2024-03-03] MEDS: SALMETEROL INH SCH (10:04)
[2024-03-03] MEDS: FLUTICASONE PROPIONATE INH SCH (10:04)
[2024-03-03] MEDS: Tiotropium Bromide 4 GM Inhalation Spray (2.5mcg/1 dose; 10 doses) INH SCH (10:04)
[2024-03-03] MEDS: Furosemide 20 MG/2 ML VIAL IVPUSH ONE (10:31)
[2024-03-03 13:53] VITALS: BP 116/70; PULSE 100
[2025-03-08] MEDS ORDERED: Alendronate Sodium 70 MG Tablet PO SCH (06:00)
== END 2024-03-03 13:45 | disposition home health service (06) | DRG 291 ==
LOC: JD.ED 17:02 → JD.MS 18:58 → OBSVTOIN 03-02 10:07
PROVIDERS: ADMIT Student in an Organized Health Care Education/Training Program; ATTEND Student in an Organized Health Care Education/Training Program
DX: I13.0 Hypertensive heart and chronic kidney disease with heart failure and stage 1 through stage 4 chronic kidney disease, or unspecified chronic kidney disease (principal); I50.1 Left ventricular failure, unspecified; I50.23 Acute on chronic systolic (congestive) heart failure; I48.20 Chronic atrial fibrillation, unspecified; J98.11 Atelectasis; E11.9 Type 2 diabetes mellitus without complications; N18.4 Chronic kidney disease, stage 4 (severe); J44.9 Chronic obstructive pulmonary disease, unspecified; Z66 Do not resuscitate; K21.9 Gastro-esophageal reflux disease without esophagitis; N40.0 Benign prostatic hyperplasia without lower urinary tract symptoms; E11.22 Type 2 diabetes mellitus with diabetic chronic kidney disease; H54.7 Unspecified visual loss; H91.90 Unspecified hearing loss, unspecified ear; M19.90 Unspecified osteoarthritis, unspecified site; M81.0 Age-related osteoporosis without current pathological fracture; Z96.659 Presence of unspecified artificial knee joint; F15.90 Other stimulant use, unspecified, uncomplicated; D47.2 Monoclonal gammopathy; G47.33 Obstructive sleep apnea (adult) (pediatric); E78.5 Hyperlipidemia, unspecified; Z85.51 Personal history of malignant neoplasm of bladder; Z79.01 Long term (current) use of anticoagulants; Z79.1 Long term (current) use of non-steroidal anti-inflammatories (NSAID); Z98.49 Cataract extraction status, unspecified eye; Z87.891 Personal history of nicotine dependence; Z95.1 Presence of aortocoronary bypass graft; Z99.81 Dependence on supplemental oxygen; Z79.899 Other long term (current) drug therapy; Z79.02 Long term (current) use of antithrombotics/antiplatelets
CPT/HCPCS: 36415; 71045; 71045-26; 71046; 71046-26; 80048; 80053; 81003; 82947; 83605; 83735; 83880; 84100; 84484; 85025; 86140; 87428-QW; 93005; 93010; 93306; 94640; 94660; 94761; 96374; 97116-GP; 97162-GP; 99223; 99239; 99285; 99285-25; A9270-GY; G0378; J1815; J1940; J3490

== ENCOUNTER 2024-04-07 13:18 | Emergency (ER) | payer MEDICARE, BC ==
[2024-04-07] MEDS ORDERED: Sodium Chloride 0.9% 10 ML Syringe FLUSH PRN (13:41)
[2024-04-07 14:30] LABS: BASOPHILS PERCENT AUTO 0.4 % (0.0-1.0); EOSINOPHILS ABSOLUTE AUTO 0.1 K/mm3 (0.0-0.4); EOSINOPHILS PERCENT AUTO 0.9 % (0.0-6.0); HEMATOCRIT 38.8 % (42.0-52.0); HEMOGLOBIN 12.5 gm/dl (14.0-18.0); IMMATURE GRAN ABSOLUTE AUTO 0.04 K/mm3 (0.00-0.05); IMMATURE GRAN PERCENT AUTO 0.4 % (0.0-0.4); LYMPHOCYTES ABSOLUTE AUTO 0.9 K/mm3 (1.0-4.8); LYMPHOCYTES PERCENT AUTO 8.5 % (24.0-44.0); MEAN CORPUSCULAR HEMOGLOBIN 31.3 pg (28.0-32.0); MEAN CORPUSCULAR HGB CONC 32.2 g/dl (32.0-36.0); MEAN PLATELET VOLUME 10.1 fl (9.4-12.4); MONOCYTES ABSOLUTE AUTO 0.8 K/mm3 (0.0-0.8); MONOCYTES PERCENT AUTO 7.8 % (0.0-8.0); NEUTROPHILS ABSOLUTE AUTO 8.5 K/mm3 (1.8-7.7); PLATELET COUNT,PLT 296 K/mm3 (150-400); WHITE BLOOD CELL COUNT,WBC 10.39 K/mm3 (3.9-11.3)
[2024-04-07] MEDS: Albuterol/Ipratropium 3.0-0.5 MG/3 ML Neb Soln NEB ONE (14:44)
[2024-04-07 15:01] LABS: A/G RATIO 0.6 (1-2); ALBUMIN 2.9 g/dl (3.4-5.0); ANION GAP 13.7 (5-15); BILIRUBIN TOTAL 1.9 mg/dL (0.2-1.0); BUN/CREATININE RATIO 26.1 (14-18); C-REACTIVE PROTEIN 0.92 mg/dL (<0.30); CALCIUM 10.5 mg/dL (8.5-10.1); CREATININE 2.3 mg/dL (0.7-1.3); EST CRCL DRUG DOSING (CG) 24.25 mL/min; LACTIC ACID 2.6 mmol/L (0.4-2.0); MAGNESIUM 2.4 mg/dL (1.8-2.4); POTASSIUM,K 3.7 mEq/L (3.5-5.1); PROTEIN TOTAL,TP 7.7 g/dl (6.4-8.2)
[2024-04-07 15:18] LABS: INR 1.27; PROTHROMBIN TIME 13.3 SECONDS (9.7-12.0)
[2024-04-07 16:58] VITALS: BP 107/68; PULSE 87
== END 2024-04-07 16:15 | disposition home or self-care (01) ==
LOC: JD.ED 13:18
DX: I13.0 Hypertensive heart and chronic kidney disease with heart failure and stage 1 through stage 4 chronic kidney disease, or unspecified chronic kidney disease (principal); I50.9 Heart failure, unspecified; N18.4 Chronic kidney disease, stage 4 (severe); J44.9 Chronic obstructive pulmonary disease, unspecified; I48.20 Chronic atrial fibrillation, unspecified; E11.9 Type 2 diabetes mellitus without complications; Z79.899 Other long term (current) drug therapy
CPT/HCPCS: 36415; 71045; 71045-26; 80053; 83605; 83735; 83880; 84484; 85025; 85610; 86140; 87428-QW; 93005; 93010; 94640; 99285; J7620-GY